=== PATIENT | male | born 1980 | race Two or more races ===

== ENCOUNTER 2025-02-06 06:40 | Day surgery (SDC) | payer MEDICARE, MEDICAID, SELFPAY ==
[2025-02-06] VITALS (8 sets, daily range): BP systolic 101–133; BP diastolic 61–92; PULSE 73–90; RESP 9–18; TEMP 36.7; O2SAT 94–99; BMI 34.9
[2025-02-06] MEDS: MIDAZOLAM INJ 1 MG/ML VIAL 2 ML (ASD USE ONLY) 2 MG IVP (07:56)
[2025-02-06] MEDS: fentaNYL CIT INJ 50 mCg/ML AMP 2ML (ASD USE ONLY) IVP (07:56)
[2025-02-06] MEDS: SODIUM CHLORIDE 0.9% 500 ML 500 ML 20 ML IV (07:56)
--- NOTE | 2025-02-06 08:00 | SUR.PHASEII ---
PT ARRIVED TO PACU WITH NO ACUTE DISTRESS NOTED. PT SLEEPY BUT EASILY AROUSE.
== END 2025-02-06 08:39 | disposition home or self-care (01) ==
PROVIDERS: PCP Family Medicine; Referring Provider Surgery; Visit Provider Surgery
PROC: 0DBE8ZX Excision of Large Intestine, Via Natural or Artificial Opening Endoscopic, Diagnostic (ICD-10-PCS; CPT 45380; principal; 2025-02-06 07:30)
DX: Z12.11 Encounter for screening for malignant neoplasm of colon (principal); D12.5 Benign neoplasm of sigmoid colon; K57.30 Diverticulosis of large intestine without perforation or abscess without bleeding; I12.0 Hypertensive chronic kidney disease with stage 5 chronic kidney disease or end stage renal disease; N18.6 End stage renal disease; Z99.2 Dependence on renal dialysis; M10.9 Gout, unspecified; Z79.899 Other long term (current) drug therapy
CPT/HCPCS: 45385; A4649; J1200; J2250; J3010; J7999